=== PATIENT | male | born 1990 | race Caucasian/White ===

== ENCOUNTER 2017-10-21 12:18 | Emergency (ER) | payer MEDICARE, MEDICAID ==
[2017-10-21 12:23] VITALS: BP 118/69
[2017-10-21] MEDS ORDERED: ONDANSETRON 4 MG TAB.RAPDIS PO ONE (12:36)
--- NOTE | 2017-10-21 12:42 | ER Document Report ---
ED General - General Chief Complaint: Nausea/Vomiting/Diarrhea Stated Complaint: STOMACH PAIN Time Seen by Provider: 10/21/17 12:31 Notes: 27-year-old male here with complaints of nausea vomiting diarrhea fevers and abdominal pain that started 2 days ago. The abdominal pain is intermittent and he does not have any at this time. He has not tried taking anything for the symptoms. He has been drinking Gatorade. His had the same symptoms recently. Immunizations up-to-date. TRAVEL OUTSIDE OF THE [place] IN LAST 30 DAYS: No - Related Data Allergies/Adverse Reactions: Amphetamine Aspartate * [From Adderall] Allergy (Verified 10/21/17 12:24) amphetamine sulfate [From Adderall] Allergy (Verified 10/21/17 12:24) dextroamphetamine [From Adderall] Allergy (Verified 10/21/17 12:24) Past Medical History - Social History Smoking Status: Former Smoker Chew tobacco use (# tins/day): Yes Frequency of alcohol use: None Drug Abuse: None Family History: Arthritis, CVA, DM, Hyperlipidemia, Hypertension, Malignancy, Thyroid Disfunction Patient has suicidal ideation: No Patient has homicidal ideation: No - Past Medical History Cardiac Medical History: Reports: Hx Hypercholesterolemia Renal/ Medical History: Denies: Hx Peritoneal Dialysis Psychiatric Medical History: Reports: Hx Attention Deficit Hyperactivity Disorder - Immunizations Immunizations up to date: Yes Hx Diphtheria, Pertussis, Tetanus Vaccination: No Review of Systems - Review of Systems Notes: See history of present illness for pertinent positive review of systems; otherwise all review of systems have been reviewed and are negative Physical Exam - Vital signs Vitals: Temp Pulse Resp BP Pulse Ox 97.8 F 70 17 118/69 100 10/21/17 12:22 10/21/17 12:22 10/21/17 12:22 10/21/17 12:22 10/21/17 12:22 - Notes Notes: PHYSICAL EXAMINATION: GENERAL: Well-appearing and in no acute distress. HEAD: Atraumatic, normocephalic. EYES: Pupils equal round and reactive to light, extraocular movements intact, sclera anicteric, conjunctiva are normal. ENT: nares patent, oropharynx clear without exudates. Moist mucous membranes. NECK: Normal range of motion, supple without lymphadenopathy LUNGS: CTAB and equal. No wheezes rales or rhonchi. HEART: Regular rate and rhythm without murmurs ABDOMEN: Soft, no tenderness. No guarding, no rebound. No facial grimacing/ wincing upon palpation EXTREMITIES: Normal range of motion, no pitting edema. No cyanosis. NEUROLOGICAL: Cranial nerves grossly intact. Normal sensory/motor exams. PSYCH: Normal mood, normal affect. SKIN: Warm, Dry, normal turgor, no rashes or lesions noted Course - Re-evaluation Re-evalutation: 10/21/17 12:41 MEDICAL DECISION MAKING: Concern for gastroenteritis, most likely viral Abdominal exam is largely unremarkable Will give dose of antiemetic here and prescription for same Instructed follow-up PCP next day or few Patient understands and agrees to the plan of care - Vital Signs Vital signs: Temp Pulse Resp BP Pulse Ox 97.8 F 70 17 118/69 100 10/21/17 12:22 10/21/17 12:22 10/21/17 12:22 10/21/17 12:22 10/21/17 12:22 Discharge - Discharge Clinical Impression: Nausea vomiting and diarrhea Condition: Good Disposition: HOME, SELF-CARE Additional Instructions: Use the prescribed medication as needed for your symptoms. First try the Zofran. If it does not work then try the Phenergan as your second choice. The Phenergan can make you sleepy. You were seen in the emergency department at [facility]. If you were given any sedating medications, be sure not to operate heavy machinery (example - driving) and be sure you are not too sedated to walk appropriately. Please followup with your primary physician in the next few days for further management/evaluation. Please return to the emergency department for worsening of symptoms or any symptom that you deem to be concerning or life-threatening. Thank you for allowing us to be part of your care. Prescriptions: Ondansetron [Zofran Odt 4 mg Tablet] 1 tab PO Q4H PRN #15 tab.rapdis PRN Reason: For Nausea/Vomiting Promethazine HCl [Phenergan 25 mg Tablet] 1 tab PO Q6H PRN #15 tablet PRN Reason: vomiting
== END 2017-10-21 12:44 | disposition home or self-care (01) ==
LOC: ER 12:18
DX: R11.2 Nausea with vomiting, unspecified (principal); R19.7 Diarrhea, unspecified; R50.9 Fever, unspecified; Z88.8 Allergy status to other drugs, medicaments and biological substances; Z72.0 Tobacco use
CPT/HCPCS: 99283; A9270; S0119

== ENCOUNTER 2018-01-01 15:08 | Emergency (ER) | payer MEDICARE, MEDICAID ==
[2018-01-01 15:14] VITALS: BP 126/77
--- NOTE | 2018-01-01 15:53 | ER Document Report ---
ED Extremity Problem, Lower - General Chief Complaint: Foot Pain Stated Complaint: FOOT INJURY Time Seen by Provider: 01/01/18 15:35 Mode of Arrival: Ambulatory Information source: Patient Notes: 27-year-old male presented ED for pain to his right foot between his fourth and fifth toe. He states he was washing his foot and noticed a sore. He states he is having painful ambulation. Patient is alert and oriented respirations regular and labored patient is walking with a even steady gait. TRAVEL OUTSIDE OF THE [place] IN LAST 30 DAYS: No - HPI Patient complains to provider of: Pain Location: Foot - Right foot between the fourth fifth toe Where: Home Onset/Duration: Sudden Quality of pain: Burning Severity: Mild Pain Level: 2 Recent injury: No Associated symptoms: Painful ambulation Exacerbated by: Movement, Walking Relieved by: Nothing - Related Data Allergies/Adverse Reactions: Amphetamine Aspartate * [From Adderall] Allergy (Verified 10/21/17 12:24) amphetamine sulfate [From Adderall] Allergy (Verified 10/21/17 12:24) dextroamphetamine [From Adderall] Allergy (Verified 10/21/17 12:24) Past Medical History - General Information source: Patient - Social History Smoking Status: Never Smoker Cigarette use (# per day): No Chew tobacco use (# tins/day): Yes - 1 can every 2 weeks Smoking Education Provided: No Frequency of alcohol use: None Drug Abuse: None Occupation: [employer] Lives with: Family Family History: Arthritis, CVA, DM, Hyperlipidemia, Hypertension, Malignancy, Thyroid Disfunction Patient has suicidal ideation: No Patient has homicidal ideation: No - Past Medical History Cardiac Medical History: Reports: Hx Hypercholesterolemia Pulmonary Medical History: Reports: None EENT Medical History: Reports: None Neurological Medical History: Reports: None Endocrine Medical History: Reports: None Renal/ Medical History: Reports: None Malignancy Medical History: Reports None GI Medical History: Reports: None Musculoskeltal Medical History: Reports None Skin Medical History: Reports None Psychiatric Medical History: Reports: Hx Attention Deficit Hyperactivity Disorder Traumatic Medical History: Reports: None Infectious Medical History: Reports: None Surgical Hx: Negative Past Surgical History: Reports: None - Immunizations Immunizations up to date: Yes Hx Diphtheria, Pertussis, Tetanus Vaccination: No Review of Systems - Review of Systems Constitutional: No symptoms reported EENT: No symptoms reported Cardiovascular: No symptoms reported Respiratory: No symptoms reported Gastrointestinal: No symptoms reported Genitourinary: No symptoms reported Male Genitourinary: No symptoms reported Musculoskeletal: No symptoms reported Skin: Other - Pain between the fourth and fifth toe on the right foot. States when he was washing his foot he noticed a hole between the fourth and fifth toe. Hematologic/Lymphatic: No symptoms reported Neurological/Psychological: No symptoms reported -: Yes All other systems reviewed and negative Physical Exam - Vital signs Vitals: Temp Pulse Resp BP Pulse Ox 98.5 F 90 20 126/77 H 96 01/01/18 15:13 01/01/18 15:13 01/01/18 15:13 01/01/18 15:13 01/01/18 15:13 Interpretation: Normal - General General appearance: Appears well, Alert - HEENT Head: Normocephalic, Atraumatic Eyes: Normal Pupils: PERRL - Respiratory Respiratory status: No respiratory distress Chest status: Nontender Breath sounds: Normal Chest palpation: Normal - Cardiovascular Rhythm: Regular Heart sounds: Normal auscultation Murmur: No - Abdominal Inspection: Normal Distension: No distension Bowel sounds: Normal Tenderness: Nontender Organomegaly: No organomegaly - Back Back: Normal, Nontender - Extremities General upper extremity: Normal inspection, Nontender, Normal color, Normal ROM , Normal temperature General lower extremity: Normal inspection, Nontender, Normal color, Normal ROM , Normal temperature, Normal weight bearing. No: Uriah's sign - Neurological Neuro grossly intact: Yes Cognition: Normal Orientation: AAOx4 [place] Coma Scale Eye Opening: Spontaneous [place] Coma Scale Verbal: Oriented [place] Coma Scale Motor: Obeys Commands [place] Coma Scale Total: 15 Speech: Normal Motor strength normal: LUE, RUE, LLE, RLE Sensory: Normal - Psychological Associated symptoms: Normal affect, Normal mood - Skin Skin Temperature: Warm Skin Moisture: Dry Skin Color: Normal Irregularity with: Scaling - Athlete's foot between the fourth and fifth toe no signs or symptoms of infection no redness no swelling no drainage Course - Re-evaluation Re-evalutation: 01/01/18 21:37 Patient was given instructions for athlete's foot. Patient instructed to clean feet frequently and keep them clean and dry. Patient was instructed to use athlete's foot medicine and to follow-up with a education and outreach coordinator. - Vital Signs Vital signs: Temp Pulse Resp BP Pulse Ox 98.5 F 90 20 126/77 H 96 01/01/18 15:13 01/01/18 15:13 01/01/18 15:13 01/01/18 15:13 01/01/18 15:13 Discharge - Discharge Clinical Impression: Tinea pedis Qualifiers: Laterality: right Qualified Code(s): B35.3 - Tinea pedis Condition: Stable Disposition: HOME, SELF-CARE Additional Instructions: Athletes Foot Athlete's foot is a fungus infection of the skin. It typically causes cracking and peeling between the toes. The fungus thrives in a damp, warm environment. You should wash between the toes twice daily with a mild soap (like Phisoderm, Ivory, or Neutrogena). Dry between the toes thoroughly but carefully , and allow to air-dry several minutes. Then apply antifungal medication. If your feet sweat during work or sports, you should put cotton between the toes, changing it every hour or two. Frequent changes of socks are a must, both while the infection is present and afterward. Complete healing may take two or three weeks. Recurrences are common. Keep the spaces between the toes as clean and dry as possible. If increasing swelling and redness develops, if red streaks are seen, or if fever or chilling occur, return immediately for re-evaluation. Please stop chewing tobacco. This can cause tongue cancer mouth cancer and throat cancer. FOLLOW-UP CARE: If you have been referred to a physician for follow-up care, call the physician s office for an appointment as you were instructed or within the next two days. If you experience worsening or a significant change in your symptoms, notify the physician immediately or return to the Emergency Department at any time for re-evaluation. Forms: Elevated Blood Pressure, Return to Work Referrals: KENDY KEMP MD [Primary Care Provider] - Follow up as needed TODD URIBE DPM [ACTIVE STAFF] - Follow up as needed
== END 2018-01-01 16:13 | disposition home or self-care (01) ==
LOC: ER 15:08
DX: B35.3 Tinea pedis (principal); M79.671 Pain in right foot; Z88.8 Allergy status to other drugs, medicaments and biological substances; Z72.0 Tobacco use
CPT/HCPCS: 99283

== ENCOUNTER 2018-01-19 14:17 | Emergency (ER) | payer MEDICARE, MEDICAID ==
[2018-01-19 14:24] VITALS: BP 126/68
--- NOTE | 2018-01-19 15:13 | ER Document Report ---
HPI - HPI Pain Level: 2 Notes: Patient is a 27-year-old male no significant past medical history presents to the ED complaining of a scab to his right fourth knuckle of his hand 1 day. Patient states that he bruised it against a car door. Patient states that he has no pain or discomfort. He states that it has not been bleeding. His last tetanus was within 3 years. Patient states that he came primarily for a work note and has no other concerns or complaints. Denies any headache, fever, URI, sore throat, chest pain, palpitations, syncope, cough, shortness of breath, wheeze, dyspnea, abdominal pain, nausea/vomiting/diarrhea, urinary retention, dysuria, hematuria, numbness/tingling, muscle paralysis/weakness, or rash. - ROS Systems Reviewed and Negative: Yes All other systems reviewed and negative Past Medical History - Social History Smoking Status: Never Smoker Family History: Arthritis, CVA, DM, Hyperlipidemia, Hypertension, Malignancy, Thyroid Disfunction - Past Medical History Cardiac Medical History: Reports: Hx Hypercholesterolemia Renal/ Medical History: Denies: Hx Peritoneal Dialysis Psychiatric Medical History: Reports: Hx Attention Deficit Hyperactivity Disorder - Immunizations Immunizations up to date: Yes Hx Diphtheria, Pertussis, Tetanus Vaccination: No Vertical Provider Document - CONSTITUTIONAL Agree With Documented VS: Yes Notes: PHYSICAL EXAMINATION: GENERAL: Well-appearing, well-nourished and in no acute distress. LUNGS: Breath sounds clear to auscultation bilaterally and equal. No wheezes rales or rhonchi. HEART: Regular rate and rhythm without murmurs, rubs, gallops. Musculoskeletal: Rt hand: FROM to passive/active. Strength 5+/5. No bony tenderness. N/V intact distal. Extremities: No cyanosis, clubbing, or edema b/l. Peripheral pulses 2+. Capillary refill less than 3 seconds. NEUROLOGICAL: Cranial nerves grossly intact. Normal speech, normal gait. Normal sensory, motor exams PSYCH: Normal mood, normal affect. SKIN: Rt 4th digit MCP: there is a 1-2mm round very small and superficial open scab. Non-tender. No bleeding. No induration, abscess, fluctuance, streaks, or discharge. - INFECTION CONTROL TRAVEL OUTSIDE OF THE [place] IN LAST 30 DAYS: No Course - Re-evaluation Re-evalutation: 07/04/18 15:15 Patient is an afebrile, well-hydrated, 27-year-old male who presents to the ED for a work note for a very small superficial open scab on his fourth MCP joint. Tetanus is up-to-date. Vitals are acceptable without any significant tachycardia, tachypnea, or hypoxia. PE is otherwise unremarkable for any neurovascular compromise, obvious tendon/ligament rupture, obvious fracture/ dislocation, septic joint. The total diameter is between 1 and 2 mm without any tenderness, induration, fluctuance, or streaks. I will give the patient a work note that he may return today as this is not a compelling issue that would require him to be unable to perform his work duties. Bacitracin given today. No labs or imaging warranted at this time based on H&P. Recheck with your PCM in 3-5 days. Return to the ED with any worsening/concerning symptoms otherwise as reviewed in discharge. Patient is in agreement. - Vital Signs Vital signs: Temp Pulse Resp BP Pulse Ox 98.4 F 72 18 126/68 H 96 01/19/18 14:22 01/19/18 14:22 01/19/18 14:22 01/19/18 14:22 01/19/18 14:22 Discharge - Discharge Clinical Impression: Abrasion Condition: Stable Disposition: HOME, SELF-CARE Instructions: Abrasions ([facility]) Additional Instructions: Keep the skin clean Wash with soap and water Tylenol/ibuprofen if needed Triple antibiotic ointment daily Take medication as directed Monitor for any worsening symptoms Recheck with your PCM in 3-5 days Return to the ED with any worsening symptoms and/or development of fever, headache, chest pain, palpitations, syncope, shortness of breath, trouble breathing, abdominal pain, n/v/d, abscess, purulent discharge, red streaks, worsening swelling, or other worsening symptoms that are concerning to you. Forms: Elevated Blood Pressure, Return to Work Referrals: KENDY KEMP MD [Primary Care Provider] - Follow up in 3-5 days
== END 2018-01-19 16:00 | disposition home or self-care (01) ==
LOC: ER 14:17
DX: S60.511A Abrasion of right hand, initial encounter (principal); W22.8XXA Striking against or struck by other objects, initial encounter
CPT/HCPCS: 99282

== ENCOUNTER 2018-08-11 12:20 | Emergency (ER) | payer MEDICARE, MEDICAID ==
[2018-08-11 12:36] VITALS: BP 134/78
[2018-08-11] MEDS ORDERED: LIDOCAINE 5% (700 MG) TRANSDERMAL ADH..PATCH TP ONE (12:59)
[2018-08-11] MEDS ORDERED: KETOROLAC TROMETHAMINE 60 MG/2 ML SDV IM ONE (12:59)
--- NOTE | 2018-08-11 13:02 | ER Document Report ---
HPI - HPI Time Seen by Provider: 08/11/18 12:49 Pain Level: 4 Notes: Patient is a 28-year-old male who presents with chief complaint of low back pain. Patient reports approximately 2-3 days ago he was trying to lift up the transmission of the vehicle and a few hours later he felt stiffness across his low back. Denies any direct trauma to the area. Denies any loss of bowel function, reports he is able to urinate without difficulty. Denies any radiation of the pain, denies any numbness and tingling in his legs. Past Medical History - General Information source: Patient - Social History Smoking Status: Former Smoker Chew tobacco use (# tins/day): Yes - 1 tin per week Family History: Arthritis, CVA, DM, Hyperlipidemia, Hypertension, Malignancy, Thyroid Disfunction Patient has suicidal ideation: No Patient has homicidal ideation: No - Past Medical History Cardiac Medical History: Reports: Hx Hypercholesterolemia Renal/ Medical History: Denies: Hx Peritoneal Dialysis Psychiatric Medical History: Reports: Hx Attention Deficit Hyperactivity Disorder - Immunizations Immunizations up to date: Yes Hx Diphtheria, Pertussis, Tetanus Vaccination: No Vertical Provider Document - CONSTITUTIONAL Notes: PHYSICAL EXAMINATION: GENERAL: Well-appearing, well-nourished and in no acute distress. HEAD: Atraumatic, normocephalic. EYES: Pupils equal round extraocular movements intact, conjunctiva are normal. ENT: Nares patent NECK: Normal range of motion LUNGS: No respiratory distress Musculoskeletal: Normal range of motion, tenderness to palpation across lumbar paraspinous muscles, no vertebral tenderness, no step-off or deformity. NEUROLOGICAL: Normal speech, normal gait. PSYCH: Normal mood, normal affect. SKIN: Warm, Dry, normal turgor, no rashes or lesions noted. - INFECTION CONTROL TRAVEL OUTSIDE OF THE [place] IN LAST 30 DAYS: No Course - Re-evaluation Re-evalutation: 08/11/18 13:00 Patient treated with IM Toradol and Lidoderm patch. Will prescribe short course of Robaxin and encourage patient to take ibuprofen. Discussed red flag signs of back pain to include loss of control of bowels, urinary retention and saddle anesthesia. - Vital Signs Vital signs: Temp Pulse Resp BP Pulse Ox 98.3 F 71 16 134/78 H 96 08/11/18 12:36 08/11/18 12:36 08/11/18 12:36 08/11/18 12:36 08/11/18 12:36 Discharge - Discharge Clinical Impression: Back pain Qualifiers: Back pain location: low back pain Chronicity: acute Back pain laterality: bilateral Sciatica presence: without sciatica Qualified Code(s): M54.5 - Low back pain Condition: Stable Disposition: HOME, SELF-CARE Additional Instructions: You have been seen in the Emergency Department (ED) today for back pain. Your workup and exam have not shown any acute abnormalities and you are likely suffering from muscle strain or possible problems with your discs, but there is no treatment that will fix your symptoms at this time. Please take ibuprofen 600 mg every 6 hours. Use the muscle relaxer as prescribed. You should also purchase a local lidocaine cream such as "aspercreme with lidocaine" and use per bottle instructions to the affected area. Apply heat to the area as often as you are able. Continue to keep active and avoid prolonged periods of bed rest. Please follow up with your doctor as soon as possible regarding today's ED visit and your back pain. Return to the ED for worsening back pain, fever, weakness or numbness of either leg, or if you develop either (1) an inability to urinate or have bowel movements, or (2) loss of your ability to control your bathroom functions (if you start having "accidents"), or if you develop other new symptoms that concern you.concern you. Prescriptions: Methocarbamol [Robaxin 750 mg Tablet] 750 mg PO Q6H #20 tablet Referrals: KENDY KEMP MD [Primary Care Provider] - Follow up as needed
== END 2018-08-11 13:13 | disposition home or self-care (01) ==
LOC: ER 12:20
DX: M54.5 Low back pain (principal); X50.9XXA Other and unspecified overexertion or strenuous movements or postures, initial encounter; Z87.891 Personal history of nicotine dependence
CPT/HCPCS: 99283; 96372; J1885

== ENCOUNTER 2018-09-28 06:41 | Emergency (ER) | payer MEDICARE, MEDICAID ==
--- NOTE | 2018-09-28 07:53 | ER Document Report ---
ED General - General Chief Complaint: Fever Stated Complaint: FEVER Time Seen by Provider: 09/28/18 07:21 Primary Care Provider: KENDY KEMP MD [NO LOCAL MD] - Follow up as needed TRAVEL OUTSIDE OF THE [place] IN LAST 30 DAYS: No - HPI Patient complains to provider of: Fever Notes: Patient coming in for evaluation of fever. Patient states feeling unwell cough nasal congestion sinus pressure ongoing for the last 2 days. Patient denies any recent travel denies any recent antibiotics. Patient resting comfortably upon my evaluation. - Related Data Allergies/Adverse Reactions: Amphetamine Aspartate * [From Adderall] Allergy (Verified 01/19/18 14:21) amphetamine sulfate [From Adderall] Allergy (Verified 01/19/18 14:21) dextroamphetamine [From Adderall] Allergy (Verified 01/19/18 14:21) Past Medical History - Social History Smoking Status: Never Smoker Chew tobacco use (# tins/day): No Frequency of alcohol use: None Family History: Arthritis, CVA, DM, Hyperlipidemia, Hypertension, Malignancy, Thyroid Disfunction Patient has suicidal ideation: No Patient has homicidal ideation: No - Past Medical History Cardiac Medical History: Reports: Hx Hypercholesterolemia Renal/ Medical History: Denies: Hx Peritoneal Dialysis Psychiatric Medical History: Reports: Hx Attention Deficit Hyperactivity Disorder - Immunizations Immunizations up to date: Yes Hx Diphtheria, Pertussis, Tetanus Vaccination: No Review of Systems - Review of Systems Constitutional: Fever EENT: No symptoms reported Cardiovascular: No symptoms reported Respiratory: No symptoms reported Gastrointestinal: Nausea, Vomiting Genitourinary: No symptoms reported Male Genitourinary: No symptoms reported Musculoskeletal: No symptoms reported Skin: No symptoms reported Hematologic/Lymphatic: No symptoms reported Neurological/Psychological: No symptoms reported -: Yes All other systems reviewed and negative Physical Exam - Vital signs Vitals: Temp Pulse Resp BP Pulse Ox 97.8 F 84 16 126/74 H 99 09/28/18 08:16 09/28/18 08:16 09/28/18 08:16 09/28/18 08:16 09/28/18 08:16 Interpretation: Normal - General General appearance: Appears well, Alert - HEENT Head: Normocephalic, Atraumatic Eyes: Normal Pupils: PERRL - Respiratory Respiratory status: No respiratory distress Chest status: Nontender Breath sounds: Normal Chest palpation: Normal - Cardiovascular Rhythm: Regular Heart sounds: Normal auscultation Murmur: No - Abdominal Inspection: Normal Distension: No distension Bowel sounds: Normal Tenderness: Nontender Organomegaly: No organomegaly - Back Back: Normal, Nontender - Extremities General upper extremity: Normal inspection, Nontender, Normal color, Normal ROM, Normal temperature General lower extremity: Normal inspection, Nontender, Normal color, Normal ROM, Normal temperature, Normal weight bearing. No: Uriah's sign - Neurological Neuro grossly intact: Yes Cognition: Normal Orientation: AAOx4 [place] Coma Scale Eye Opening: Spontaneous [place] Coma Scale Verbal: Oriented [place] Coma Scale Motor: Obeys Commands [place] Coma Scale Total: 15 Speech: Normal Motor strength normal: LUE, RUE, LLE, RLE Sensory: Normal - Psychological Associated symptoms: Normal affect, Normal mood - Skin Skin Temperature: Warm Skin Moisture: Dry Skin Color: Normal Course - Re-evaluation Re-evalutation: 09/28/18 14:25 Patient coming in for evaluation of cold and flulike symptoms. Patient's evaluation is consistent with a viral type illness. No signs of any critical pathology patient will be discharged home. - Vital Signs Vital signs: Temp Pulse Resp BP Pulse Ox 97.8 F 84 16 126/74 H 99 09/28/18 08:16 09/28/18 08:16 09/28/18 08:16 09/28/18 08:16 09/28/18 08:16 Discharge - Discharge Clinical Impression: Flu-like symptoms Condition: Good Disposition: HOME, SELF-CARE Instructions: Acetaminophen, Fever ([facility]), Viral Syndrome ([facility]) Additional Instructions: Your symptoms are likely due to a virus. However, it is important that you continue to monitor for any concerning symptoms including inability to tolerate oral fluids, less than 2 urinations in a 24 hour period, and lethargy Please continue to offer oral solutions such as Pedialyte, water, gatorade. It is okay if you do not want to eat over the next several days but it is important that they continue to drink fluids. You may also provide a medication such as ibuprofen (Motrin) or acetaminophen (Tylenol) per box instructions for fever. Please also follow-up with your doctor in the next several days. Please take the medications given to you as prescribed. Forms: Parent Work Note, Return to Work Referrals: KENDY KEMP MD [NO LOCAL MD] - Follow up as needed
[2018-09-28 08:17] VITALS: BP 126/74
== END 2018-09-28 08:17 | disposition home or self-care (01) ==
LOC: ER 06:41
DX: R50.9 Fever, unspecified (principal); R05 Cough; R09.81 Nasal congestion; R11.2 Nausea with vomiting, unspecified; Z88.8 Allergy status to other drugs, medicaments and biological substances
CPT/HCPCS: 99283